=== PATIENT | male | born 1995 | race African-American/Black ===

== ENCOUNTER 2022-06-19 16:39 | Emergency (ER) | payer OTHER ==
[2022-06-19 16:47] VITALS: BP 117/76; PULSE 81; RESP 18; TEMP 97.3; BMI 42.3
[2022-06-19] MEDS ORDERED: ACETAMINOPHEN 500 MG TABLET (FP) PO ONE (18:20)
[2022-06-19] MEDS ORDERED: ACETAMINOPHEN 325 MG TABLET (FP) ONE (18:24)
[2022-06-19] MEDS ORDERED: KETOROLAC TROMETHAMINE 30 MG/1 ML VIAL IM ONE (18:24)
[2022-06-19] MEDS ORDERED: KETOROLAC TROMETHAMINE 30 MG/1 ML VIAL ONE (18:25)
== END 2022-06-19 22:43 | disposition home or self-care (01) ==
LOC: JERFT 16:39
PROC: 3E0233Z Introduction of Anti-inflammatory into Muscle, Percutaneous Approach (ICD-10-PCS; principal; 2022-06-19)
DX: M79.10 Myalgia, unspecified site (principal)
CPT/HCPCS: 73000-TC-RT-FY; 73030-TC-RT-FY; 73060-TC-RT-FY; 73070-TC-RT-FY; 73090-TC-RT-FY; 73110-TC-RT-FY; 73130-TC-RT-FY; 73562-TC-LT-FY; 99284-25